=== PATIENT | male | born 1955 | race American Indian/Alaskan Native ===

== ENCOUNTER → 2017-02-20 | Outpatient (CLI) | payer OTHER | END | disposition home or self-care (01) | LOC: MW.RT 21:08 | PROVIDERS: ATTEND Family Medicine | DX: R04.2 Hemoptysis (principal) | CPT/HCPCS: 95810 ==

== ENCOUNTER 2020-05-20 20:33 | Observation (INO) | payer OTHER ==
[2020-05-20] MEDS ORDERED: Aspirin 81 MG Tab.Chew PO ONE (21:07)
[2020-05-20] MEDS ORDERED: Furosemide 40 MG/4 ML VIAL IVPUSH ONE (21:11)
--- NOTE | 2020-05-20 21:14 | EDM.PDOC ---
ED HPI GENERAL MEDICAL PROBLEM - General Chief Complaint: Chest Pain Stated Complaint: chest pain short of breath Time Seen by Provider: 05/20/20 20:40 Source of Information: Reports: Patient History Limitations: Reports: No Limitations - History of Present Illness INITIAL COMMENTS - FREE TEXT/NARRATIVE: 64M PMHx unspecified open heart surgery roughly 50 years ago, HTN, HLD presents for chest pain x1-week associated with b/l ankle swelling and SOB. Patient has not seen a nurse esthetician or had a cardiac workup in many years. Notes pain is constant. Notes ankle swelling only relieved by laying down at night. Notes SOB "for many years" and h/o low O2 sat. Onset: Other (7 days) Location: Reports: Chest Quality: Reports: Sharp - Related Data Allergies Allergy/AdvReac Type Severity Reaction Status Date / Time No Known Allergies Allergy Verified 05/21/20 01:39 Home Meds: Home Meds Ezetimibe/Simvastatin [Vytorin 10-40 mg Tablet] 1 each PO DAILY 09/30/15 [History] Glimepiride 4 mg PO BIDMEALS 09/30/15 [History] Insulin Glarg,Human.Rec.Analog [LantUS] 45 unit SUBCUT DAILY 09/30/15 [History] Lisinopril [Prinivil] 20 mg PO DAILY 09/30/15 [History] Omeprazole [Prilosec] 20 mg PO DAILY 09/30/15 [History] hydroCHLOROthiazide [Hydrochlorothiazide] 25 mg PO DAILY 09/30/15 [History] Past Medical History Cardiovascular History: Reports: Heart Valve Replacement, Stents, Other (See Be low) Other Cardiovascular History: artificial pig valve Endocrine/Metabolic History: Reports: Diabetes, Type I - Past Surgical History Cardiovascular Surgical History: Reports: Valve Replacement Social & Family History - Family History Family Medical History: Noncontributory ED ROS GENERAL - Review of Systems Review Of Systems: Comprehensive ROS is negative, except as noted in HPI. ED EXAM, GENERAL - Physical Exam Exam: See Below Exam Limited By: No Limitations General Appearance: Alert, WD/WN, No Apparent Distress Head: Atraumatic Neck: Normal Inspection Respiratory/Chest: No Respiratory Distress, Lungs Clear, Normal Breath Sounds, No Accessory Muscle Use Cardiovascular: Normal Peripheral Pulses, Tachycardia, Other (b/l symmetric pitting LE edema) GI/Abdominal: Soft, Non-Tender, No Distention, Other (obese) Neurological: Alert, Oriented Psychiatric: Normal Affect, Normal Mood Skin Exam: Warm, Dry EKG INTERPRETATION EKG Date: 05/20/20 Time: 21:19 Rhythm: NSR Rate (Beats/Min): 115 ST-T: Normal (TWI inferior leads) Course - Vital Signs Last Recorded V/S: Last Vital Signs Temp 98.6 F 05/21/20 01:42 Pulse 91 05/21/20 01:42 Resp 18 05/21/20 01:15 BP 162/88 H 05/21/20 01:42 Pulse Ox 93 L 05/21/20 02:47 - Orders/Labs/Meds Orders: Medication Orders Acetaminophen (Tylenol) 650 mg PO Q6H PRN PRN Reason: Pain Albuterol/Ipratropium (Duoneb 3.0-0.5 Mg/3 Ml) 3 ml NEB Q4HRRT PRN PRN Reason: Shortness of Breath Aspirin (Aspirin) 81 mg PO DAILY TERESE Furosemide (Lasix) 40 mg IVPUSH BID TERESE Labetalol HCl (Normodyne) 20 mg IVPUSH Q4H PRN; Protocol PRN Reason: Hypertension Pravastatin Sodium (Pravachol) 20 mg PO BEDTIME TERESE Last Admin: 05/21/20 02:20 Dose: 20 mg Documented by: MO Labs: Laboratory Tests 05/20/20 05/20/20 05/20/20 Range/Units 21:15 21:15 21:15 WBC 10.36 (4.0-11.0) K/uL RBC 5.00 (4.50-5.90) M/uL Hgb 15.1 (13.0-17.0) g/dL Hct 45.0 (38.0-50.0) % MCV 90.0 (80.0-98.0) fL MCH 30.2 (27.0-32.0) pg MCHC 33.6 (31.0-37.0) g/dL RDW Std Deviation 43.3 (28.0-62.0) fl RDW Coeff of Saritha 13 (11.0-15.0) % Plt Count 184 (150-400) K/uL MPV 10.10 (7.40-12.00) fL Neut % (Auto) 52.4 (48.0-80.0) % Lymph % (Auto) 34.3 (16.0-40.0) % Clarke % (Auto) 10.2 (0.0-15.0) % Eos % (Auto) 2.9 (0.0-7.0) % Baso % (Auto) 0.2 (0.0-1.5) % Neut # (Auto) 5.4 (1.4-5.7) K/uL Lymph # (Auto) 3.6 H (0.6-2.4) K/uL Clarke # (Auto) 1.1 H (0.0-0.8) K/uL Eos # (Auto) 0.3 (0.0-0.7) K/uL Baso # (Auto) 0.0 (0.0-0.1) K/uL Nucleated RBC % 0.0 /100WBC Nucleated RBCs # 0 K/uL D-Dimer, Quantitative (0.0-0.50) mg/L FEU Sodium 134 L (136-148) mmol/L Potassium 3.7 (3.5-5.1) mmol/L Chloride 97 L (98-107) mmol/L Carbon Dioxide 23.9 (21.0-32.0) mmol/L BUN 15 (7.0-18.0) mg/dL Creatinine 1.0 (0.8-1.3) mg/dL Est Cr Clr Drug Dosing TNP Estimated GFR (MDRD) > 60.0 ml/min Glucose 195 H (74-106) mg/dL Calcium 8.8 (8.5-10.1) mg/dL Magnesium 1.1 L (1.8-2.4) mg/dL Total Bilirubin 0.4 (0.2-1.0) mg/dL AST 21 (15-37) IU/L ALT 22 (14-63) IU/L Alkaline Phosphatase 87 (46-116) U/L Troponin I < 0.050 (0.000-0.056) ng/mL B-Natriuretic Peptide 85 (<100) PG/ML Total Protein 8.2 (6.4-8.2) g/dL Albumin 3.6 (3.4-5.0) g/dL Globulin 4.6 H (2.6-4.0) g/dL Albumin/Globulin Ratio 0.8 L (0.9-1.6) Urine Color Urine Appearance Urine pH (5.0-8.0) Ur Specific [place] (1.001-1.035) Urine Protein (NEGATIVE) mg/dL Urine Glucose (UA) (NEGATIVE) mg/dL Urine Ketones (NEGATIVE) mg/dL Urine Occult Blood (NEGATIVE) Urine Nitrite (NEGATIVE) Urine Bilirubin (NEGATIVE) Urine Urobilinogen (<2.0) EU/dL Ur Leukocyte Esterase (NEGATIVE) Urine RBC (0-2/HPF) Urine WBC (0-5/HPF) Ur Epithelial Cells (NONE-FEW) Urine Bacteria (NEGATIVE) Urine Mucus (NONE-MOD) COVID-19 (JAMES) (NEGATIVE) 05/20/20 05/20/20 05/20/20 Range/Units 21:35 21:50 22:45 WBC (4.0-11.0) K/uL RBC (4.50-5.90) M/uL Hgb (13.0-17.0) g/dL Hct (38.0-50.0) % MCV (80.0-98.0) fL MCH (27.0-32.0) pg MCHC (31.0-37.0) g/dL RDW Std Deviation (28.0-62.0) fl RDW Coeff of Saritha (11.0-15.0) % Plt Count (150-400) K/uL MPV (7.40-12.00) fL Neut % (Auto) (48.0-80.0) % Lymph % (Auto) (16.0-40.0) % Clarke % (Auto) (0.0-15.0) % Eos % (Auto) (0.0-7.0) % Baso % (Auto) (0.0-1.5) % Neut # (Auto) (1.4-5.7) K/uL Lymph # (Auto) (0.6-2.4) K/uL Clarke # (Auto) (0.0-0.8) K/uL Eos # (Auto) (0.0-0.7) K/uL Baso # (Auto) (0.0-0.1) K/uL Nucleated RBC % /100WBC Nucleated RBCs # K/uL D-Dimer, Quantitative 0.55 H (0.0-0.50) mg/L FEU Sodium (136-148) mmol/L Potassium (3.5-5.1) mmol/L Chloride (98-107) mmol/L Carbon Dioxide (21.0-32.0) mmol/L BUN (7.0-18.0) mg/dL Creatinine (0.8-1.3) mg/dL Est Cr Clr Drug Dosing Estimated GFR (MDRD) ml/min Glucose (74-106) mg/dL Calcium (8.5-10.1) mg/dL Magnesium (1.8-2.4) mg/dL Total Bilirubin (0.2-1.0) mg/dL AST (15-37) IU/L ALT (14-63) IU/L Alkaline Phosphatase (46-116) U/L Troponin I (0.000-0.056) ng/mL B-Natriuretic Peptide (<100) PG/ML Total Protein (6.4-8.2) g/dL Albumin (3.4-5.0) g/dL Globulin (2.6-4.0) g/dL Albumin/Globulin Ratio (0.9-1.6) Urine Color YELLOW Urine Appearance HAZY Urine pH 5.5 (5.0-8.0) Ur Specific [place] 1.010 (1.001-1.035) Urine Protein 100 H (NEGATIVE) mg/dL Urine Glucose (UA) 250 H (NEGATIVE) mg/dL Urine Ketones NEGATIVE (NEGATIVE) mg/dL Urine Occult Blood MODERATE H (NEGATIVE) Urine Nitrite NEGATIVE (NEGATIVE) Urine Bilirubin NEGATIVE (NEGATIVE) Urine Urobilinogen 0.2 (<2.0) EU/dL Ur Leukocyte Esterase NEGATIVE (NEGATIVE) Urine RBC 2-4 (0-2/HPF) Urine WBC 1-3 (0-5/HPF) Ur Epithelial Cells FEW (NONE-FEW) Urine Bacteria RARE (NEGATIVE) Urine Mucus LIGHT (NONE-MOD) COVID-19 (JAMES) NEGATIVE (NEGATIVE) 05/20/20 Range/Units 23:34 WBC (4.0-11.0) K/uL RBC (4.50-5.90) M/uL Hgb (13.0-17.0) g/dL Hct (38.0-50.0) % MCV (80.0-98.0) fL MCH (27.0-32.0) pg MCHC (31.0-37.0) g/dL RDW Std Deviation (28.0-62.0) fl RDW Coeff of Saritha (11.0-15.0) % Plt Count (150-400) K/uL MPV (7.40-12.00) fL Neut % (Auto) (48.0-80.0) % Lymph % (Auto) (16.0-40.0) % Clarke % (Auto) (0.0-15.0) % Eos % (Auto) (0.0-7.0) % Baso % (Auto) (0.0-1.5) % Neut # (Auto) (1.4-5.7) K/uL Lymph # (Auto) (0.6-2.4) K/uL Clarke # (Auto) (0.0-0.8) K/uL Eos # (Auto) (0.0-0.7) K/uL Baso # (Auto) (0.0-0.1) K/uL Nucleated RBC % /100WBC Nucleated RBCs # K/uL D-Dimer, Quantitative (0.0-0.50) mg/L FEU Sodium (136-148) mmol/L Potassium (3.5-5.1) mmol/L Chloride (98-107) mmol/L Carbon Dioxide (21.0-32.0) mmol/L BUN (7.0-18.0) mg/dL Creatinine (0.8-1.3) mg/dL Est Cr Clr Drug Dosing Estimated GFR (MDRD) ml/min Glucose (74-106) mg/dL Calcium (8.5-10.1) mg/dL Magnesium (1.8-2.4) mg/dL Total Bilirubin (0.2-1.0) mg/dL AST (15-37) IU/L ALT (14-63) IU/L Alkaline Phosphatase (46-116) U/L Troponin I < 0.050 (0.000-0.056) ng/mL B-Natriuretic Peptide (<100) PG/ML Total Protein (6.4-8.2) g/dL Albumin (3.4-5.0) g/dL Globulin (2.6-4.0) g/dL Albumin/Globulin Ratio (0.9-1.6) Urine Color Urine Appearance Urine pH (5.0-8.0) Ur Specific [place] (1.001-1.035) Urine Protein (NEGATIVE) mg/dL Urine Glucose (UA) (NEGATIVE) mg/dL Urine Ketones (NEGATIVE) mg/dL Urine Occult Blood (NEGATIVE) Urine Nitrite (NEGATIVE) Urine Bilirubin (NEGATIVE) Urine Urobilinogen (<2.0) EU/dL Ur Leukocyte Esterase (NEGATIVE) Urine RBC (0-2/HPF) Urine WBC (0-5/HPF) Ur Epithelial Cells (NONE-FEW) Urine Bacteria (NEGATIVE) Urine Mucus (NONE-MOD) COVID-19 (JAMES) (NEGATIVE) Meds: Medications Generic Name Dose Route Start Last Admin Trade Name Yoon PRN Reason Stop Dose Admin Acetaminophen 650 mg 05/21/20 01:48 Tylenol PO Q6H PRN Pain Albuterol/Ipratropium 3 ml 05/21/20 01:56 Duoneb 3.0-0.5 Mg/3 Ml NEB Q4HRRT PRN Shortness of Breath Aspirin 81 mg 05/21/20 09:00 Aspirin PO DAILY TERESE Furosemide 40 mg 05/21/20 09:00 Lasix IVPUSH BID TERESE Labetalol HCl 20 mg 05/21/20 02:00 Normodyne IVPUSH Q4H PRN Hypertension Protocol Pravastatin Sodium 20 mg 05/21/20 01:45 05/21/20 02:20 Pravachol PO 20 mg BEDTIME TERESE Administration Discontinued Medications Generic Name Dose Route Start Last Admin Trade Name Yoon PRN Reason Stop Dose Admin Aspirin 324 mg 05/20/20 21:07 05/20/20 21:38 Aspirin PO 05/20/20 21:08 324 mg ONETIME ONE Administration Furosemide 40 mg 05/20/20 21:11 05/20/20 21:38 Lasix IVPUSH 05/20/20 21:12 40 mg NOW ONE Administration Magnesium Sulfate 2 gm/ Premix 50 mls @ 50 mls/hr 05/21/20 01:47 05/21/20 02:21 IV 05/21/20 02:46 50 mls/hr ONETIME ONE Administration Iopamidol 75 ml 05/20/20 23:08 05/20/20 23:10 Isovue-370 (76%) IVPUSH 05/20/20 23:09 75 ml ONETIME STA Administration Labetalol HCl 20 mg 05/20/20 21:17 05/20/20 21:35 Normodyne IVPUSH 05/20/20 21:18 20 mg ONETIME ONE Administration Protocol Labetalol HCl 20 mg 05/20/20 23:24 05/20/20 23:37 Normodyne IVPUSH 05/20/20 23:25 20 mg ONETIME ONE Administration Protocol - Re-Assessments/Exams Free Text/Narrative Re-Assessment/Exam: 05/20/20 21:19 Patient presents with evidence of volume overload, hypertension, tachycardia. Free Text/Narrative Re-Assessment/Exam: 05/20/20 23:25 CT PE negative. Initially good response to labetalol 20 (BP down 150/90) but rebound back to 190/110. Will give additional labetalol 20mg. Second troponin pending for admit vs transfer. Departure - Departure Time of Disposition: 00:18 Disposition: Admitted As Inpatient 68 Condition: Fair Clinical Impression: Chest pain Qualifiers: Chest pain type: other chest pain Qualified Code(s): R07.89 - Other chest pain; R07.8 - Other chest pain Sepsis Event Note (ED) - Evaluation Sepsis Screening Result: No Definite Risk - Focused Exam Vital Signs: Vital Signs Temp Pulse Resp BP Pulse Ox 05/20/20 23:49 94 24 H 175/91 H 94 L 05/20/20 23:44 93 18 175/90 H 94 L 05/20/20 23:09 95 18 193/111 H 94 L 05/20/20 21:39 93 18 153/85 H 95 05/20/20 20:58 97.6 F 108 H 20 215/116 H 93 L
[2020-05-20] MEDS ORDERED: Labetalol 100 MG/20 ML MDV IVPUSH ONE ×2 (21:17→23:24)
--- NOTE | 2020-05-20 21:37 | CR ---
Chest: Portable view of the chest was obtained. Comparison: Prior chest x-ray of 09/30/15. Heart is slightly enlarged. Prior sternotomy is noted. Lungs are clear with no acute parenchymal change. Bony structures are grossly intact. Impression: 1. Stable cardiomegaly with prior sternotomy. 2. Nothing acute is appreciated. Diagnostic code #2 This report was dictated in MDT
[2020-05-20 21:51] LABS: BLOOD UREA NITROGEN,BUN 15 mg/dL (7.0-18.0); CARBON DIOXIDE,CO2 23.9 mmol/L (21.0-32.0); CHLORIDE,CL 97 mmol/L (98-107); GLUCOSE RANDOM 195 mg/dL (74-106); POTASSIUM,K 3.7 mmol/L (3.5-5.1); SODIUM,NA 134 mmol/L (136-148)
[2020-05-20] MEDS ORDERED: Iopamidol 755 Mg/ML 100 ML Bottle IVPUSH STA ×2 (23:06→23:08)
--- NOTE | 2020-05-20 23:21 | CT ---
INDICATION: Shortness of breath and chest pain for a week TECHNIQUE: CT chest pulmonary PE protocol acquired with 75 cc Isovue 370 IV contrast. COMPARISON: October 12, 2015 FINDINGS: Cardiovascular structures: Normal vascular enhancement of the pulmonary arteries, no sign of pulmonary embolism. Status post median sternotomy. Heart size is normal. Coronary artery calcifications. No sign of aneurysm in the thoracic aorta. Mediastinum and bo: No mass or adenopathy. Lungs: Bilateral ground-glass opacities. Pleura and pericardium: No effusions. There are pericardial calcifications. Chest wall and axilla: No mass or adenopathy. Upper abdomen: Unremarkable. Bones: No significant findings. IMPRESSION: No pulmonary embolism. Bilateral ground-glass opacities concerning for infection, including COVID-19. Coronary artery disease. Pericardial calcifications. These can be seen with prior pericarditis. Please note that all CT scans at this facility use dose modulation, iterative reconstruction, and/or weight-based dosing when appropriate to reduce radiation dose to as low as reasonably achievable. Dictated by Mellissa Hough MD @ May 20 2020 11:10PM Signed by Dr. Mellissa Hough @ May 20 2020 11:20PM
[2020-05-21] MEDS ORDERED: Magnesium Sulfate/Water 2 GM in Premix Bag 1 BAG IV ONE (01:47)
[2020-05-21] MEDS ORDERED: Acetaminophen 325 MG Tab PO PRN (01:48)
[2020-05-21] MEDS ORDERED: Albuterol/Ipratropium 3.0-0.5 MG/3 ML Neb Soln NEB PRN (01:56)
[2020-05-21] MEDS ORDERED: Labetalol 100 MG/20 ML MDV IVPUSH PRN (02:00)
[2020-05-21] MEDS: Pravastatin 40 MG Tab PO SCH ×2 (02:20→20:48)
[2020-05-21] MEDS ORDERED: Insulin Glargine,Human Rec. Analog 100 Units/ML 3 ML Pen SUBCUT SCH ×2 (03:22→21:00)
[2020-05-21 06:42] LABS: BLOOD UREA NITROGEN,BUN 25 mg/dL (7.0-18.0); CARBON DIOXIDE,CO2 27.6 mmol/L (21.0-32.0); CHLORIDE,CL 98 mmol/L (98-107); GLUCOSE RANDOM 259 mg/dL (74-106); POTASSIUM,K 3.8 mmol/L (3.5-5.1); SODIUM,NA 135 mmol/L (136-148)
[2020-05-21 06:47] LABS: HEMOGLOBIN A1C 8.9 % (4.5-6.2)
--- NOTE | 2020-05-21 08:05 | PCM.HP.2 ---
<Arslan Lynch M - Last Filed: 05/21/20 12:07> H&P History of Present Illness - General Date of Service: 05/21/20 Admit Problem/Dx: Admission Diagnosis/Problem Admission Diagnosis/Problem Chest pain Source of Information: Patient History Limitations: Reports: No Limitations - History of Present Illness Initial Comments - Free Text/Narative: 64-year-old male presents complaining of left-sided chest pain. He has a PMH HTN, hyperlipidemia, heart valve replacement, diabetes mellitus type II and SONJA. Patient reports that he has been having left-sided, sharp, intermittent chest pain for the past 1 week. It will last for a few hours and resolve spo ntaneously. It is described as being burning in nature and is unrelated to activity. He has been have leg swelling for the past 1 year. He notices the leg swelling by the end of the day when his shoes start feeling tight. After lying down the leg swelling resolves. He was put on "water pills" by his PCP for it. He also reports shortness of breath on exertion for the past 1 month. He denies any recent weight gain or feeling short of breath when laying down. Denies any tobacco use or illicit drugs. Drinks 14 beers per week. Works in [employer] and has been subject to "fumes" for many years and never wore a mask. He has a sleep study done 2-3 years ago and diagnosed with SONJA but does not use CPAP machine because he cannot tolerate it. Denies any fevers, chills, blurry vision, sore throat, cough, nausea, vomiting, abdominal pain, diarrhea, blood in stool, blood in urine, numbness or tingling in extremities. In the ER, EKG was unremarkable, CXR showed cardiomegaly, CT angio showed no PE but did reveal b/l ground-glass opacities. UA was unremarkable. COVID19 test negative. BNP was normal. Troponin was negative. Patient was given aspirin 324 mg and IV labetalol x 2 for high blood pressures. Patient admitted for further evaluation and treatment. - Related Data Allergies/Adverse Reactions: Allergies Allergy/AdvReac Type Severity Reaction Status Date / Time No Known Allergies Allergy Verified 05/21/20 01:39 Home Medications: Home Meds Ezetimibe/Simvastatin [Vytorin 10-40 mg Tablet] 1 each PO DAILY 09/30/15 [History] Glimepiride 4 mg PO BIDMEALS 09/30/15 [History] Insulin Glarg,Human.Rec.Analog [Lantus] 45 unit SUBCUT DAILY 09/30/15 [History] Lisinopril [Prinivil] 20 mg PO DAILY 09/30/15 [History] Omeprazole [Prilosec] 20 mg PO DAILY 09/30/15 [History] hydroCHLOROthiazide [Hydrochlorothiazide] 25 mg PO DAILY 09/30/15 [History] Aspirin 81 mg PO DAILY 30 Days #30 tab.chew 05/21/20 [Rx] Furosemide 20 mg PO DAILY 30 Days #30 tablet 05/21/20 [Rx] Past Medical History HEENT History: Reports: None Cardiovascular History: Reports: Heart Valve Replacement, Stents, Other (See Below) Other Cardiovascular History: artificial pig valve Respiratory History: Reports: None, Sleep Apnea Gastrointestinal History: Reports: None Genitourinary History: Reports: None Musculoskeletal History: Reports: None Neurological History: Reports: None Psychiatric History: Reports: None Endocrine/Metabolic History: Reports: Diabetes, Type I Hematologic History: Reports: None Immunologic History: Reports: None Oncologic (Cancer) History: Reports: None Dermatologic History: Reports: None - Infectious Disease History Infectious Disease History: Reports: None - Past Surgical History Cardiovascular Surgical History: Reports: Valve Replacement Social & Family History - Family History Family Medical History: Noncontributory - Tobacco Use Smoking Status *Q: Never Smoker Second Hand Smoke Exposure: Yes - Caffeine Use Caffeine Use: Reports: Soda - Alcohol Use Days Per Week of Alcohol Use: 2 Number of Drinks Per Day: 10 Total Drinks Per Week: 20 Date of Last Drink: 05/21/20 Time of Last Drink: 18:00 - Recreational Drug Use Recreational Drug Use: No H&P Review of Systems - Review of Systems: Review Of Systems: Comprehensive ROS is negative, except as noted in HPI. Exam - Exam Exam: See Below - Vital Signs Vital Signs: Last Vital Signs Temp 36.4 C 05/21/20 04:35 Pulse 80 05/21/20 04:35 Resp 18 05/21/20 04:35 BP 142/70 H 05/21/20 04:35 Pulse Ox 96 05/21/20 04:35 Weight: 109.27 kg - Exam General: Alert, Oriented, Cooperative, Other (NAD) HEENT: Conjunctiva Clear, EOMI, Hearing Intact, Pupils Equal, Pupils Reactive Neck: Supple, Trachea Midline Lungs: Clear to Auscultation, Normal Respiratory Effort Cardiovascular: Regular Rate, Regular Rhythm GI/Abdominal Exam: Normal Bowel Sounds, Soft, Non-Tender, No Distention Extremities: Normal Inspection, Other (1+ pitting edema b/l) Peripheral Pulses: 2+: Radial (L), Radial (R) Skin: Warm, Dry, Intact Neurological: Cranial Nerves Intact, Strength Equal Bilateral, Normal Speech, Normal Tone Neuro Extensive - Mental Status: Alert, Oriented x3, Normal Mood/Affect Psychiatric: Alert, Normal Affect, Normal Mood - Patient Data Lab Results Last 24 hrs: Laboratory Results - last 24 hr 05/20/20 05/20/20 05/20/20 Range/Units 21:15 21:15 21:15 WBC 10.36 (4.0-11.0) K/uL RBC 5.00 (4.50-5.90) M/uL Hgb 15.1 (13.0-17.0) g/dL Hct 45.0 (38.0-50.0) % MCV 90.0 (80.0-98.0) fL MCH 30.2 (27.0-32.0) pg MCHC 33.6 (31.0-37.0) g/dL RDW Std Deviation 43.3 (28.0-62.0) fl RDW Coeff of Saritha 13 (11.0-15.0) % Plt Count 184 (150-400) K/uL MPV 10.10 (7.40-12.00) fL Neut % (Auto) 52.4 (48.0-80.0) % Lymph % (Auto) 34.3 (16.0-40.0) % Crisp % (Auto) 10.2 (0.0-15.0) % Eos % (Auto) 2.9 (0.0-7.0) % Baso % (Auto) 0.2 (0.0-1.5) % Neut # (Auto) 5.4 (1.4-5.7) K/uL Lymph # (Auto) 3.6 H (0.6-2.4) K/uL Crisp # (Auto) 1.1 H (0.0-0.8) K/uL Eos # (Auto) 0.3 (0.0-0.7) K/uL Baso # (Auto) 0.0 (0.0-0.1) K/uL Nucleated RBC % 0.0 /100WBC Nucleated RBCs # 0 K/uL D-Dimer, Quantitative (0.0-0.50) mg/L FEU Sodium 134 L (136-148) mmol/L Potassium 3.7 (3.5-5.1) mmol/L Chloride 97 L (98-107) mmol/L Carbon Dioxide 23.9 (21.0-32.0) mmol/L BUN 15 (7.0-18.0) mg/dL Creatinine 1.0 (0.8-1.3) mg/dL Est Cr Clr Drug Dosing TNP Estimated GFR (MDRD) > 60.0 ml/min Glucose 195 H (74-106) mg/dL POC Glucose (60-110) mg/dL Hemoglobin A1c (4.5-6.2) % Calcium 8.8 (8.5-10.1) mg/dL Phosphorus (2.6-4.7) mg/dL Magnesium 1.1 L (1.8-2.4) mg/dL Total Bilirubin 0.4 (0.2-1.0) mg/dL AST 21 (15-37) IU/L ALT 22 (14-63) IU/L Alkaline Phosphatase 87 (46-116) U/L Troponin I < 0.050 (0.000-0.056) ng/mL B-Natriuretic Peptide 85 (<100) PG/ML Total Protein 8.2 (6.4-8.2) g/dL Albumin 3.6 (3.4-5.0) g/dL Globulin 4.6 H (2.6-4.0) g/dL Albumin/Globulin Ratio 0.8 L (0.9-1.6) Triglycerides (0-200) mg/dL Cholesterol (50-200) mg/dL LDL Cholesterol, Calc (60-180) mg/dL VLDL Cholesterol (5-55) mg/dL HDL Cholesterol (40-60) mg/dL Cholesterol/HDL Ratio (3.3-6.0) TSH 3rd Generation (0.36-3.74) uIU/mL Urine Color Urine Appearance Urine pH (5.0-8.0) Ur Specific [place] (1.001-1.035) Urine Protein (NEGATIVE) mg/dL Urine Glucose (UA) (NEGATIVE) mg/dL Urine Ketones (NEGATIVE) mg/dL Urine Occult Blood (NEGATIVE) Urine Nitrite (NEGATIVE) Urine Bilirubin (NEGATIVE) Urine Urobilinogen (<2.0) EU/dL Ur Leukocyte Esterase (NEGATIVE) Urine RBC (0-2/HPF) Urine WBC (0-5/HPF) Ur Epithelial Cells (NONE-FEW) Urine Bacteria (NEGATIVE) Urine Mucus (NONE-MOD) COVID-19 (JAMES) (NEGATIVE) 05/20/20 05/20/20 05/20/20 Range/Units 21:35 21:50 22:45 WBC (4.0-11.0) K/uL RBC (4.50-5.90) M/uL Hgb (13.0-17.0) g/dL Hct (38.0-50.0) % MCV (80.0-98.0) fL MCH (27.0-32.0) pg MCHC (31.0-37.0) g/dL RDW Std Deviation (28.0-62.0) fl RDW Coeff of Saritha (11.0-15.0) % Plt Count (150-400) K/uL MPV (7.40-12.00) fL Neut % (Auto) (48.0-80.0) % Lymph % (Auto) (16.0-40.0) % Crisp % (Auto) (0.0-15.0) % Eos % (Auto) (0.0-7.0) % Baso % (Auto) (0.0-1.5) % Neut # (Auto) (1.4-5.7) K/uL Lymph # (Auto) (0.6-2.4) K/uL Crisp # (Auto) (0.0-0.8) K/uL Eos # (Auto) (0.0-0.7) K/uL Baso # (Auto) (0.0-0.1) K/uL Nucleated RBC % /100WBC Nucleated RBCs # K/uL D-Dimer, Quantitative 0.55 H (0.0-0.50) mg/L FEU Sodium (136-148) mmol/L Potassium (3.5-5.1) mmol/L Chloride (98-107) mmol/L Carbon Dioxide (21.0-32.0) mmol/L BUN (7.0-18.0) mg/dL Creatinine (0.8-1.3) mg/dL Est Cr Clr Drug Dosing Estimated GFR (MDRD) ml/min Glucose (74-106) mg/dL POC Glucose (60-110) mg/dL Hemoglobin A1c (4.5-6.2) % Calcium (8.5-10.1) mg/dL Phosphorus (2.6-4.7) mg/dL Magnesium (1.8-2.4) mg/dL Total Bilirubin (0.2-1.0) mg/dL AST (15-37) IU/L ALT (14-63) IU/L Alkaline Phosphatase (46-116) U/L Troponin I (0.000-0.056) ng/mL B-Natriuretic Peptide (<100) PG/ML Total Protein (6.4-8.2) g/dL Albumin (3.4-5.0) g/dL Globulin (2.6-4.0) g/dL Albumin/Globulin Ratio (0.9-1.6) Triglycerides (0-200) mg/dL Cholesterol (50-200) mg/dL LDL Cholesterol, Calc (60-180) mg/dL VLDL Cholesterol (5-55) mg/dL HDL Cholesterol (40-60) mg/dL Cholesterol/HDL Ratio (3.3-6.0) TSH 3rd Generation (0.36-3.74) uIU/mL Urine Color YELLOW Urine Appearance HAZY Urine pH 5.5 (5.0-8.0) Ur Specific [place] 1.010 (1.001-1.035) Urine Protein 100 H (NEGATIVE) mg/dL Urine Glucose (UA) 250 H (NEGATIVE) mg/dL Urine Ketones NEGATIVE (NEGATIVE) mg/dL Urine Occult Blood MODERATE H (NEGATIVE) Urine Nitrite NEGATIVE (NEGATIVE) Urine Bilirubin NEGATIVE (NEGATIVE) Urine Urobilinogen 0.2 (<2.0) EU/dL Ur Leukocyte Esterase NEGATIVE (NEGATIVE) Urine RBC 2-4 (0-2/HPF) Urine WBC 1-3 (0-5/HPF) Ur Epithelial Cells FEW (NONE-FEW) Urine Bacteria RARE (NEGATIVE) Urine Mucus LIGHT (NONE-MOD) COVID-19 (JAMES) NEGATIVE (NEGATIVE) 05/20/20 05/21/20 05/21/20 Range/Units 23:34 02:36 03:38 WBC (4.0-11.0) K/uL RBC (4.50-5.90) M/uL Hgb (13.0-17.0) g/dL Hct (38.0-50.0) % MCV (80.0-98.0) fL MCH (27.0-32.0) pg MCHC (31.0-37.0) g/dL RDW Std Deviation (28.0-62.0) fl RDW Coeff of Saritha (11.0-15.0) % Plt Count (150-400) K/uL MPV (7.40-12.00) fL Neut % (Auto) (48.0-80.0) % Lymph % (Auto) (16.0-40.0) % Crisp % (Auto) (0.0-15.0) % Eos % (Auto) (0.0-7.0) % Baso % (Auto) (0.0-1.5) % Neut # (Auto) (1.4-5.7) K/uL Lymph # (Auto) (0.6-2.4) K/uL Crisp # (Auto) (0.0-0.8) K/uL Eos # (Auto) (0.0-0.7) K/uL Baso # (Auto) (0.0-0.1) K/uL Nucleated RBC % /100WBC Nucleated RBCs # K/uL D-Dimer, Quantitative (0.0-0.50) mg/L FEU Sodium (136-148) mmol/L Potassium (3.5-5.1) mmol/L Chloride (98-107) mmol/L Carbon Dioxide (21.0-32.0) mmol/L BUN (7.0-18.0) mg/dL Creatinine (0.8-1.3) mg/dL Est Cr Clr Drug Dosing Estimated GFR (MDRD) ml/min Glucose (74-106) mg/dL POC Glucose 245 H (60-110) mg/dL Hemoglobin A1c (4.5-6.2) % Calcium (8.5-10.1) mg/dL Phosphorus (2.6-4.7) mg/dL Magnesium (1.8-2.4) mg/dL Total Bilirubin (0.2-1.0) mg/dL AST (15-37) IU/L ALT (14-63) IU/L Alkaline Phosphatase (46-116) U/L Troponin I < 0.050 < 0.050 (0.000-0.056) ng/mL B-Natriuretic Peptide (<100) PG/ML Total Protein (6.4-8.2) g/dL Albumin (3.4-5.0) g/dL Globulin (2.6-4.0) g/dL Albumin/Globulin Ratio (0.9-1.6) Triglycerides (0-200) mg/dL Cholesterol (50-200) mg/dL LDL Cholesterol, Calc (60-180) mg/dL VLDL Cholesterol (5-55) mg/dL HDL Cholesterol (40-60) mg/dL Cholesterol/HDL Ratio (3.3-6.0) TSH 3rd Generation (0.36-3.74) uIU/mL Urine Color Urine Appearance Urine pH (5.0-8.0) Ur Specific [place] (1.001-1.035) Urine Protein (NEGATIVE) mg/dL Urine Glucose (UA) (NEGATIVE) mg/dL Urine Ketones (NEGATIVE) mg/dL Urine Occult Blood (NEGATIVE) Urine Nitrite (NEGATIVE) Urine Bilirubin (NEGATIVE) Urine Urobilinogen (<2.0) EU/dL Ur Leukocyte Esterase (NEGATIVE) Urine RBC (0-2/HPF) Urine WBC (0-5/HPF) Ur Epithelial Cells (NONE-FEW) Urine Bacteria (NEGATIVE) Urine Mucus (NONE-MOD) COVID-19 (JAMES) (NEGATIVE) 05/21/20 05/21/20 05/21/20 Range/Units 05:47 05:47 05:47 WBC 10.52 (4.0-11.0) K/uL RBC 4.61 (4.50-5.90) M/uL Hgb 13.9 (13.0-17.0) g/dL Hct 41.3 (38.0-50.0) % MCV 89.6 (80.0-98.0) fL MCH 30.2 (27.0-32.0) pg MCHC 33.7 (31.0-37.0) g/dL RDW Std Deviation 43.9 (28.0-62.0) fl RDW Coeff of Saritha 13 (11.0-15.0) % Plt Count 190 (150-400) K/uL MPV 10.20 (7.40-12.00) fL Neut % (Auto) 56.8 (48.0-80.0) % Lymph % (Auto) 28.0 (16.0-40.0) % Crisp % (Auto) 11.5 (0.0-15.0) % Eos % (Auto) 3.5 (0.0-7.0) % Baso % (Auto) 0.2 (0.0-1.5) % Neut # (Auto) 6.0 H (1.4-5.7) K/uL Lymph # (Auto) 3.0 H (0.6-2.4) K/uL Crisp # (Auto) 1.2 H (0.0-0.8) K/uL Eos # (Auto) 0.4 (0.0-0.7) K/uL Baso # (Auto) 0.0 (0.0-0.1) K/uL Nucleated RBC % 0.0 /100WBC Nucleated RBCs # 0 K/uL D-Dimer, Quantitative (0.0-0.50) mg/L FEU Sodium 135 L (136-148) mmol/L Potassium 3.8 (3.5-5.1) mmol/L Chloride 98 (98-107) mmol/L Carbon Dioxide 27.6 (21.0-32.0) mmol/L BUN 25 H (7.0-18.0) mg/dL Creatinine 1.0 (0.8-1.3) mg/dL Est Cr Clr Drug Dosing 76.59 Estimated GFR (MDRD) > 60.0 ml/min Glucose 259 H (74-106) mg/dL POC Glucose (60-110) mg/dL Hemoglobin A1c 8.9 H (4.5-6.2) % Calcium 8.6 (8.5-10.1) mg/dL Phosphorus 4.6 (2.6-4.7) mg/dL Magnesium 1.8 (1.8-2.4) mg/dL Total Bilirubin (0.2-1.0) mg/dL AST (15-37) IU/L ALT (14-63) IU/L Alkaline Phosphatase (46-116) U/L Troponin I (0.000-0.056) ng/mL B-Natriuretic Peptide (<100) PG/ML Total Protein (6.4-8.2) g/dL Albumin (3.4-5.0) g/dL Globulin (2.6-4.0) g/dL Albumin/Globulin Ratio (0.9-1.6) Triglycerides 83 (0-200) mg/dL Cholesterol 114 (50-200) mg/dL LDL Cholesterol, Calc 57 L (60-180) mg/dL VLDL Cholesterol 16 (5-55) mg/dL HDL Cholesterol 40 (40-60) mg/dL Cholesterol/HDL Ratio 2.9 L (3.3-6.0) TSH 3rd Generation 3.49 (0.36-3.74) uIU/mL Urine Color Urine Appearance Urine pH (5.0-8.0) Ur Specific [place] (1.001-1.035) Urine Protein (NEGATIVE) mg/dL Urine Glucose (UA) (NEGATIVE) mg/dL Urine Ketones (NEGATIVE) mg/dL Urine Occult Blood (NEGATIVE) Urine Nitrite (NEGATIVE) Urine Bilirubin (NEGATIVE) Urine Urobilinogen (<2.0) EU/dL Ur Leukocyte Esterase (NEGATIVE) Urine RBC (0-2/HPF) Urine WBC (0-5/HPF) Ur Epithelial Cells (NONE-FEW) Urine Bacteria (NEGATIVE) Urine Mucus (NONE-MOD) COVID-19 (JAMES) (NEGATIVE) 05/21/20 Range/Units 06:38 WBC (4.0-11.0) K/uL RBC (4.50-5.90) M/uL Hgb (13.0-17.0) g/dL Hct (38.0-50.0) % MCV (80.0-98.0) fL MCH (27.0-32.0) pg MCHC (31.0-37.0) g/dL RDW Std Deviation (28.0-62.0) fl RDW Coeff of Saritha (11.0-15.0) % Plt Count (150-400) K/uL MPV (7.40-12.00) fL Neut % (Auto) (48.0-80.0) % Lymph % (Auto) (16.0-40.0) % Crisp % (Auto) (0.0-15.0) % Eos % (Auto) (0.0-7.0) % Baso % (Auto) (0.0-1.5) % Neut # (Auto) (1.4-5.7) K/uL Lymph # (Auto) (0.6-2.4) K/uL Crisp # (Auto) (0.0-0.8) K/uL Eos # (Auto) (0.0-0.7) K/uL Baso # (Auto) (0.0-0.1) K/uL Nucleated RBC % /100WBC Nucleated RBCs # K/uL D-Dimer, Quantitative (0.0-0.50) mg/L FEU Sodium (136-148) mmol/L Potassium (3.5-5.1) mmol/L Chloride (98-107) mmol/L Carbon Dioxide (21.0-32.0) mmol/L BUN (7.0-18.0) mg/dL Creatinine (0.8-1.3) mg/dL Est Cr Clr Drug Dosing Estimated GFR (MDRD) ml/min Glucose (74-106) mg/dL POC Glucose 213 H (60-110) mg/dL Hemoglobin A1c (4.5-6.2) % Calcium (8.5-10.1) mg/dL Phosphorus (2.6-4.7) mg/dL Magnesium (1.8-2.4) mg/dL Total Bilirubin (0.2-1.0) mg/dL AST (15-37) IU/L ALT (14-63) IU/L Alkaline Phosphatase (46-116) U/L Troponin I (0.000-0.056) ng/mL B-Natriuretic Peptide (<100) PG/ML Total Protein (6.4-8.2) g/dL Albumin (3.4-5.0) g/dL Globulin (2.6-4.0) g/dL Albumin/Globulin Ratio (0.9-1.6) Triglycerides (0-200) mg/dL Cholesterol (50-200) mg/dL LDL Cholesterol, Calc (60-180) mg/dL VLDL Cholesterol (5-55) mg/dL HDL Cholesterol (40-60) mg/dL Cholesterol/HDL Ratio (3.3-6.0) TSH 3rd Generation (0.36-3.74) uIU/mL Urine Color Urine Appearance Urine pH (5.0-8.0) Ur Specific [place] (1.001-1.035) Urine Protein (NEGATIVE) mg/dL Urine Glucose (UA) (NEGATIVE) mg/dL Urine Ketones (NEGATIVE) mg/dL Urine Occult Blood (NEGATIVE) Urine Nitrite (NEGATIVE) Urine Bilirubin (NEGATIVE) Urine Urobilinogen (<2.0) EU/dL Ur Leukocyte Esterase (NEGATIVE) Urine RBC (0-2/HPF) Urine WBC (0-5/HPF) Ur Epithelial Cells (NONE-FEW) Urine Bacteria (NEGATIVE) Urine Mucus (NONE-MOD) COVID-19 (JAMES) (NEGATIVE) Result Diagrams: 05/21/20 05:47 05/21/20 05:47 Sepsis Event Note - Evaluation Sepsis Screening Result: No Definite Risk - Focused Exam Vital Signs: Vital Signs Temp Pulse Resp BP Pulse Ox Pulse Ox 05/21/20 04:35 36.4 C 80 18 142/70 H 96 05/21/20 02:47 94 L 93 L 05/21/20 02:14 93 L 05/21/20 01:42 37.0 C 91 162/88 H 93 L 05/21/20 01:15 36.7 C 95 18 182/80 H 93 L 05/21/20 00:37 91 22 H 146/94 H 93 L 05/20/20 23:49 94 24 H 175/91 H 94 L 05/20/20 23:44 93 18 175/90 H 94 L 05/20/20 23:09 95 18 193/111 H 94 L 05/20/20 21:39 93 18 153/85 H 95 05/20/20 20:58 36.4 C 108 H 20 215/116 H 93 L Date Exam was Performed: 05/21/20 Time Exam was Performed: 12:07 Problem List Initiated/Reviewed/Updated: Yes Orders Last 24hrs: Active Orders 24 hr Category Date Time Status Admission Status [Patient Status] [ADT] Stat ADT 05/21/20 00:19 Active Ambulate [RC] ASDIRECTED Care 05/21/20 01:53 Active Antiembolic Devices [RC] PER UNIT ROUTINE Care 05/21/20 01:53 Active Blood Glucose Check, Bedside [RC] TIDAC Care 05/21/20 07:55 Active Daily Weight [Height and Weight] [RC] DAILY Care 05/21/20 01:46 Active Intake and Output Strict [RC] Q12H Care 05/21/20 01:47 Active Oxygen Therapy [RC] ASDIRECTED Care 05/21/20 01:54 Active Pulse Oximetry [RC] ASDIRECTED Care 05/21/20 01:53 Active RT Aerosol Therapy [RC] ASDIRECTED Care 05/21/20 01:56 Active Telemetry Monitoring [Cardiac Monitoring] [RC] . Care 05/21/20 01:45 Active DIRECTED Vital Signs [RC] Q4H Care 05/21/20 01:54 Active Cardiac [Heart Healthy Diet] [DIET] Diet 05/21/20 Breakfast Active Fluid Restriction [DIET] Diet 05/21/20 Breakfast Active Echo Comp wo Cont [] Routine Exams 05/21/20 01:55 Ordered Acetaminophen [Tylenol] Med 05/21/20 01:48 Active 650 mg PO Q6H PRN Albuterol/Ipratropium [DuoNeb 3.0-0.5 MG/3 ML] Med 05/21/20 01:56 Active 3 ml NEB Q4HRRT PRN Aspirin Med 05/21/20 09:00 Active 81 mg PO DAILY Furosemide [Lasix] Med 05/21/20 09:00 Active 40 mg IVPUSH BID Insulin Aspart [NovoLOG] Med 05/21/20 07:30 Active See Protocol SUBCUT TIDAC Insulin Glarg,Human.Rec.Analog [LantUS Solostar] Med 05/21/20 03:22 Active 20 units SUBCUT BEDTIME Labetalol [Normodyne] Med 05/21/20 02:00 Active 20 mg IVPUSH Q4H PRN Omeprazole Med 05/21/20 09:00 Active 20 mg PO DAILY Pravastatin [Pravachol] Med 05/21/20 01:45 Active 20 mg PO BEDTIME hydroCHLOROthiazide Med 05/21/20 09:00 Active 25 mg PO DAILY lisinopriL [Prinivil] Med 05/21/20 09:00 Active 20 mg PO DAILY SCD [Sequential Compression Device] [OM.PC] Routine Oth 05/21/20 01:53 Ordered Medication Orders Acetaminophen (Tylenol) 650 mg PO Q6H PRN PRN Reason: Pain Albuterol/Ipratropium (Duoneb 3.0-0.5 Mg/3 Ml) 3 ml NEB Q4HRRT PRN PRN Reason: Shortness of Breath Aspirin (Aspirin) 81 mg PO DAILY TERESE Furosemide (Lasix) 40 mg IVPUSH BID TERESE Hydrochlorothiazide (Hydrochlorothiazide) 25 mg PO DAILY TERESE Insulin Aspart (Novolog) 0 unit SUBCUT TIDAC TERESE; Protocol Insulin Glargine (Lantus Solostar) 20 units SUBCUT BEDTIME [facility] Last Admin: 05/21/20 03:39 Dose: 20 units Documented by: MO Labetalol HCl (Normodyne) 20 mg IVPUSH Q4H PRN; Protocol PRN Reason: Hypertension Lisinopril (Prinivil) 20 mg PO DAILY TERESE Omeprazole (Omeprazole) 20 mg PO DAILY TERESE Pravastatin Sodium (Pravachol) 20 mg PO BEDTIME [facility] Last Admin: 05/21/20 02:20 Dose: 20 mg Documented by: MO Assessment/Plan Comment:: Assessment and Plan: 1. Chest pain, ACS rule out: - Admit to med/surg. Patient on telemetry. EKG on admission unremarkable. Troponins trended and negative x3. Patient reports no chest pain at bedside this morning. - CT angio negative for PE but did show b/l ground-glass opacities. COVID19 test negative. CXR showed cardiomegaly. 2. CHF: - Will order ECHO. Start IV lasix 40 mg BID, fluid restriction < 2L, low salt diet < 2 g, strict I's and O's and daily weights. Will require outpatient cardiology follow-up. 3. Diabetes mellitus type 2: - Resume home dose of long-acting insulin. ADA diet and SSI. Will consult parent educator. 4. Past medical history of HTN, SONJA and heart valve replacement: - Continue home medications. 5. DVT prophylaxis: SCD's. <Susan Garrido - Last Filed: 05/21/20 22:49> H&P History of Present Illness - General Admit Problem/Dx: Admission Diagnosis/Problem Admission Diagnosis/Problem Chest pain - History of Present Illness Initial Comments - Free Text/Narative: I performed a history and physical exam of the patient and discussed management with resident. I have reviewed the residents note and agree with documented findings and plan unless otherwise specified in my note. Exam - Vital Signs Vital Signs: Last Vital Signs Temp 36.1 C 05/21/20 20:58 Pulse 83 05/21/20 20:58 Resp 16 05/21/20 20:58 BP 170/80 H 05/21/20 20:58 Pulse Ox 91 L 05/21/20 20:58 - Patient Data Lab Results Last 24 hrs: Laboratory Results - last 24 hr 05/20/20 05/20/20 05/21/20 Range/Units 22:45 23:34 02:36 WBC (4.0-11.0) K/uL RBC (4.50-5.90) M/uL Hgb (13.0-17.0) g/dL Hct (38.0-50.0) % MCV (80.0-98.0) fL MCH (27.0-32.0) pg MCHC (31.0-37.0) g/dL RDW Std Deviation (28.0-62.0) fl RDW Coeff of Saritha (11.0-15.0) % Plt Count (150-400) K/uL MPV (7.40-12.00) fL Neut % (Auto) (48.0-80.0) % Lymph % (Auto) (16.0-40.0) % Crisp % (Auto) (0.0-15.0) % Eos % (Auto) (0.0-7.0) % Baso % (Auto) (0.0-1.5) % Neut # (Auto) (1.4-5.7) K/uL Lymph # (Auto) (0.6-2.4) K/uL Crisp # (Auto) (0.0-0.8) K/uL Eos # (Auto) (0.0-0.7) K/uL Baso # (Auto) (0.0-0.1) K/uL Nucleated RBC % /100WBC Nucleated RBCs # K/uL Sodium (136-148) mmol/L Potassium (3.5-5.1) mmol/L Chloride (98-107) mmol/L Carbon Dioxide (21.0-32.0) mmol/L BUN (7.0-18.0) mg/dL Creatinine (0.8-1.3) mg/dL Est Cr Clr Drug Dosing mL/min Estimated GFR (MDRD) ml/min Glucose (74-106) mg/dL POC Glucose (60-110) mg/dL Hemoglobin A1c (4.5-6.2) % Calcium (8.5-10.1) mg/dL Phosphorus (2.6-4.7) mg/dL Magnesium (1.8-2.4) mg/dL Troponin I < 0.050 < 0.050 (0.000-0.056) ng/mL Triglycerides (0-200) mg/dL Cholesterol (50-200) mg/dL LDL Cholesterol, Calc (60-180) mg/dL VLDL Cholesterol (5-55) mg/dL HDL Cholesterol (40-60) mg/dL Cholesterol/HDL Ratio (3.3-6.0) TSH 3rd Generation (0.36-3.74) uIU/mL COVID-19 (JAMES) NEGATIVE (NEGATIVE) 05/21/20 05/21/20 05/21/20 Range/Units 03:38 05:47 05:47 WBC 10.52 (4.0-11.0) K/uL RBC 4.61 (4.50-5.90) M/uL Hgb 13.9 (13.0-17.0) g/dL Hct 41.3 (38.0-50.0) % MCV 89.6 (80.0-98.0) fL MCH 30.2 (27.0-32.0) pg MCHC 33.7 (31.0-37.0) g/dL RDW Std Deviation 43.9 (28.0-62.0) fl RDW Coeff of Saritha 13 (11.0-15.0) % Plt Count 190 (150-400) K/uL MPV 10.20 (7.40-12.00) fL Neut % (Auto) 56.8 (48.0-80.0) % Lymph % (Auto) 28.0 (16.0-40.0) % Crisp % (Auto) 11.5 (0.0-15.0) % Eos % (Auto) 3.5 (0.0-7.0) % Baso % (Auto) 0.2 (0.0-1.5) % Neut # (Auto) 6.0 H (1.4-5.7) K/uL Lymph # (Auto) 3.0 H (0.6-2.4) K/uL Crisp # (Auto) 1.2 H (0.0-0.8) K/uL Eos # (Auto) 0.4 (0.0-0.7) K/uL Baso # (Auto) 0.0 (0.0-0.1) K/uL Nucleated RBC % 0.0 /100WBC Nucleated RBCs # 0 K/uL Sodium 135 L (136-148) mmol/L Potassium 3.8 (3.5-5.1) mmol/L Chloride 98 (98-107) mmol/L Carbon Dioxide 27.6 (21.0-32.0) mmol/L BUN 25 H (7.0-18.0) mg/dL Creatinine 1.0 (0.8-1.3) mg/dL Est Cr Clr Drug Dosing 76.59 mL/min Estimated GFR (MDRD) > 60.0 ml/min Glucose 259 H (74-106) mg/dL POC Glucose 245 H (60-110) mg/dL Hemoglobin A1c (4.5-6.2) % Calcium 8.6 (8.5-10.1) mg/dL Phosphorus 4.6 (2.6-4.7) mg/dL Magnesium 1.8 (1.8-2.4) mg/dL Troponin I (0.000-0.056) ng/mL Triglycerides 83 (0-200) mg/dL Cholesterol 114 (50-200) mg/dL LDL Cholesterol, Calc 57 L (60-180) mg/dL VLDL Cholesterol 16 (5-55) mg/dL HDL Cholesterol 40 (40-60) mg/dL Cholesterol/HDL Ratio 2.9 L (3.3-6.0) TSH 3rd Generation 3.49 (0.36-3.74) uIU/mL COVID-19 (JAMES) (NEGATIVE) 05/21/20 05/21/20 05/21/20 Range/Units 05:47 06:38 11:52 WBC (4.0-11.0) K/uL RBC (4.50-5.90) M/uL Hgb (13.0-17.0) g/dL Hct (38.0-50.0) % MCV (80.0-98.0) fL MCH (27.0-32.0) pg MCHC (31.0-37.0) g/dL RDW Std Deviation (28.0-62.0) fl RDW Coeff of Saritha (11.0-15.0) % Plt Count (150-400) K/uL MPV (7.40-12.00) fL Neut % (Auto) (48.0-80.0) % Lymph % (Auto) (16.0-40.0) % Crisp % (Auto) (0.0-15.0) % Eos % (Auto) (0.0-7.0) % Baso % (Auto) (0.0-1.5) % Neut # (Auto) (1.4-5.7) K/uL Lymph # (Auto) (0.6-2.4) K/uL Crisp # (Auto) (0.0-0.8) K/uL Eos # (Auto) (0.0-0.7) K/uL Baso # (Auto) (0.0-0.1) K/uL Nucleated RBC % /100WBC Nucleated RBCs # K/uL Sodium (136-148) mmol/L Potassium (3.5-5.1) mmol/L Chloride (98-107) mmol/L Carbon Dioxide (21.0-32.0) mmol/L BUN (7.0-18.0) mg/dL Creatinine (0.8-1.3) mg/dL Est Cr Clr Drug Dosing mL/min Estimated GFR (MDRD) ml/min Glucose (74-106) mg/dL POC Glucose 213 H 247 H (60-110) mg/dL Hemoglobin A1c 8.9 H (4.5-6.2) % Calcium (8.5-10.1) mg/dL Phosphorus (2.6-4.7) mg/dL Magnesium (1.8-2.4) mg/dL Troponin I (0.000-0.056) ng/mL Triglycerides (0-200) mg/dL Cholesterol (50-200) mg/dL LDL Cholesterol, Calc (60-180) mg/dL VLDL Cholesterol (5-55) mg/dL HDL Cholesterol (40-60) mg/dL Cholesterol/HDL Ratio (3.3-6.0) TSH 3rd Generation (0.36-3.74) uIU/mL COVID-19 (JAMES) (NEGATIVE) 05/21/20 05/21/20 Range/Units 16:45 20:47 WBC (4.0-11.0) K/uL RBC (4.50-5.90) M/uL Hgb (13.0-17.0) g/dL Hct (38.0-50.0) % MCV (80.0-98.0) fL MCH (27.0-32.0) pg MCHC (31.0-37.0) g/dL RDW Std Deviation (28.0-62.0) fl RDW Coeff of Saritha (11.0-15.0) % Plt Count (150-400) K/uL MPV (7.40-12.00) fL Neut % (Auto) (48.0-80.0) % Lymph % (Auto) (16.0-40.0) % Crisp % (Auto) (0.0-15.0) % Eos % (Auto) (0.0-7.0) % Baso % (Auto) (0.0-1.5) % Neut # (Auto) (1.4-5.7) K/uL Lymph # (Auto) (0.6-2.4) K/uL Crisp # (Auto) (0.0-0.8) K/uL Eos # (Auto) (0.0-0.7) K/uL Baso # (Auto) (0.0-0.1) K/uL Nucleated RBC % /100WBC Nucleated RBCs # K/uL Sodium (136-148) mmol/L Potassium (3.5-5.1) mmol/L Chloride (98-107) mmol/L Carbon Dioxide (21.0-32.0) mmol/L BUN (7.0-18.0) mg/dL Creatinine (0.8-1.3) mg/dL Est Cr Clr Drug Dosing mL/min Estimated GFR (MDRD) ml/min Glucose (74-106) mg/dL POC Glucose 272 H 273 H (60-110) mg/dL Hemoglobin A1c (4.5-6.2) % Calcium (8.5-10.1) mg/dL Phosphorus (2.6-4.7) mg/dL Magnesium (1.8-2.4) mg/dL Troponin I (0.000-0.056) ng/mL Triglycerides (0-200) mg/dL Cholesterol (50-200) mg/dL LDL Cholesterol, Calc (60-180) mg/dL VLDL Cholesterol (5-55) mg/dL HDL Cholesterol (40-60) mg/dL Cholesterol/HDL Ratio (3.3-6.0) TSH 3rd Generation (0.36-3.74) uIU/mL COVID-19 (JAMES) (NEGATIVE) Result Diagrams: 05/21/20 05:47 05/21/20 05:47 Sepsis Event Note - Focused Exam Vital Signs: Vital Signs Temp Pulse Resp BP BP Pulse Ox 05/21/20 20:58 36.1 C 83 16 170/80 H 91 L 05/21/20 16:00 36.4 C 79 16 161/82 H 95 05/21/20 12:00 78 16 146/84 H 05/21/20 11:01 168/87 H Date Exam was Performed: 05/21/20 Time Exam was Performed: 22:49 Orders Last 24hrs: Active Orders 24 hr Category Date Time Status Admission Status [Patient Status] [ADT] Stat ADT 05/21/20 00:19 Active Ambulate [RC] ASDIRECTED Care 05/21/20 01:53 Active Antiembolic Devices [RC] PER UNIT ROUTINE Care 05/21/20 01:53 Active Blood Glucose Check, Bedside [RC] TIDAC Care 05/21/20 07:55 Active Daily Weight [Height and Weight] [RC] DAILY Care 05/21/20 01:46 Active Intake and Output Strict [RC] Q12H Care 05/21/20 01:47 Active Oxygen Therapy [RC] ASDIRECTED Care 05/21/20 01:54 Active Pulse Oximetry [RC] ASDIRECTED Care 05/21/20 01:53 Active RT Aerosol Therapy [RC] ASDIRECTED Care 05/21/20 01:56 Active Ready for Discharge [RC] PER UNIT ROUTINE Care 05/21/20 17:36 Active Telemetry Monitoring [Cardiac Monitoring] [RC] Q8H Care 05/21/20 01:45 Active Vital Signs [RC] Q4H Care 05/21/20 01:54 Active Consult to Bean Snipper [Consult to Diabetic Nurse Cons 05/21/20 10:20 Active Specialist] [CONS] Routine Cardiac [Heart Healthy Diet] [DIET] Diet 05/21/20 Breakfast Active Fluid Restriction [DIET] Diet 05/21/20 Breakfast Active Echo Comp wo Cont [US] Routine Exams 05/21/20 01:55 Taken CBC WITH AUTO DIFF [HEME] AM Lab 05/22/20 05:11 Ordered COMPREHENSIVE METABOLIC PN,CMP [CHEM] AM Lab 05/22/20 05:11 Ordered Acetaminophen [Tylenol] Med 05/21/20 01:48 Active 650 mg PO Q6H PRN Albuterol/Ipratropium [DuoNeb 3.0-0.5 MG/3 ML] Med 05/21/20 01:56 Active 3 ml NEB Q4HRRT PRN Aspirin Med 05/21/20 09:00 Active 81 mg PO DAILY Enoxaparin [Lovenox] Med 05/21/20 13:45 Active 40 mg SUBCUT Q24H Ezetimibe [Zetia] Med 05/21/20 09:00 Active 10 mg PO DAILY Furosemide [Lasix] Med 05/21/20 17:00 Active 40 mg IVPUSH Q6H Insulin Aspart [NovoLOG] Med 05/21/20 07:30 Active See Protocol SUBCUT TIDAC Insulin Glarg,Human.Rec.Analog [LantUS Solostar] Med 05/21/20 21:00 Active 40 units SUBCUT BEDTIME Labetalol [Normodyne] Med 05/21/20 02:00 Active 20 mg IVPUSH Q4H PRN Omeprazole Med 05/21/20 09:00 Active 20 mg PO DAILY Pravastatin [Pravachol] Med 05/21/20 01:45 Active 20 mg PO BEDTIME Simvastatin [Zocor] Med 05/21/20 21:00 Active 40 mg PO BEDTIME hydroCHLOROthiazide Med 05/21/20 09:00 Active 25 mg PO DAILY lisinopriL [Prinivil] Med 05/21/20 09:00 Active 20 mg PO DAILY SCD [Sequential Compression Device] [OM.PC] Routine Oth 05/21/20 01:53 Ordered Code Status [Resuscitation Status] Routine Resus Stat 05/21/20 09:38 Ordered Medication Orders Acetaminophen (Tylenol) 650 mg PO Q6H PRN PRN Reason: Pain Albuterol/Ipratropium (Duoneb 3.0-0.5 Mg/3 Ml) 3 ml NEB Q4HRRT PRN PRN Reason: Shortness of Breath Aspirin (Aspirin) 81 mg PO DAILY [facility] Last Admin: 05/21/20 10:59 Dose: 81 mg Documented by: AIDE Ezetimibe (Zetia) 10 mg PO DAILY [facility] Last Admin: 05/21/20 11:00 Dose: 10 mg Documented by: AIDE Enoxaparin Sodium (Lovenox) 40 mg SUBCUT Q24H [facility] Last Admin: 05/21/20 14:05 Dose: 40 mg Documented by: AIDE Furosemide (Lasix) 40 mg IVPUSH Q6H [facility] Last Admin: 05/21/20 17:46 Dose: 40 mg Documented by: AIDE Hydrochlorothiazide (Hydrochlorothiazide) 25 mg PO DAILY [facility] Last Admin: 05/21/20 10:59 Dose: 25 mg Documented by: AIDE Insulin Aspart (Novolog) 0 unit SUBCUT TIDAC [facility]; Protocol Last Admin: 05/21/20 18:01 Dose: 6 units Documented by: Admin: 05/21/20 13:57 Dose: 4 units Documented by: Admin: 05/21/20 11:15 Dose: 4 units Documented by: AIDE Insulin Glargine (Lantus Solostar) 40 units SUBCUT BEDTIME [facility] Last Admin: 05/21/20 20:50 Dose: 40 units Documented by: MASOOD Labetalol HCl (Normodyne) 20 mg IVPUSH Q4H PRN; Protocol PRN Reason: Hypertension Lisinopril (Prinivil) 20 mg PO DAILY [facility] Last Admin: 05/21/20 11:01 Dose: 20 mg Documented by: AIDE Omeprazole (Omeprazole) 20 mg PO DAILY [facility] Last Admin: 05/21/20 11:01 Dose: 20 mg Documented by: AIDE Pravastatin Sodium (Pravachol) 20 mg PO BEDTIME [facility] Last Admin: 05/21/20 20:48 Dose: 20 mg Documented by: Admin: 05/21/20 02:20 Dose: 20 mg Documented by: MO Simvastatin (Zocor) 40 mg PO BEDTIME [facility] Last Admin: 05/21/20 20:48 Dose: 40 mg Documented by: MASOOD
[2020-05-21] MEDS ORDERED: EZETIMIBE PO SCH (09:00)
[2020-05-21] MEDS ORDERED: SIMVASTATIN PO SCH (09:00)
[2020-05-21] MEDS ORDERED: Furosemide 40 MG/4 ML VIAL IVPUSH SCH ×3 (09:00→12:15)
[2020-05-21] MEDS ORDERED: [UNRECOGNIZED DRUG - OTHER] PO SCH (09:00)
[2020-05-21] MEDS: Hydrochlorothiazide 25 MG Tab PO SCH (10:59)
[2020-05-21] MEDS: Aspirin 81 MG Tab.Chew PO SCH (10:59)
[2020-05-21] MEDS: Ezetimibe 10 MG Tab PO SCH (11:00)
[2020-05-21] MEDS: Omeprazole 20 MG Cap.CR PO SCH (11:01)
[2020-05-21] MEDS: Lisinopril 10 MG Tab PO SCH (11:01)
[2020-05-21] MEDS: Insulin Aspart 100 Units/ML 3 ML Pen SUBCUT SCH ×3 (11:15→18:01)
[2020-05-21] MEDS ORDERED: Enoxaparin 40 MG/0.4 ML Syringe SUBCUT SCH (13:45)
[2020-05-21] MEDS: Furosemide 40 MG/4 ML VIAL IVPUSH SCH ×2 (17:46→23:18)
[2020-05-21] MEDS ORDERED: Simvastatin 40 MG Tab PO SCH (21:00)
[2020-05-22] MEDS: Furosemide 40 MG/4 ML VIAL IVPUSH SCH (05:28)
[2020-05-22 06:57] LABS: BLOOD UREA NITROGEN,BUN 30 mg/dL (7.0-18.0); CARBON DIOXIDE,CO2 30.9 mmol/L (21.0-32.0); CHLORIDE,CL 98 mmol/L (98-107); GLUCOSE RANDOM 216 mg/dL (74-106); SODIUM,NA 136 mmol/L (136-148)
[2020-05-22] MEDS: Insulin Aspart 100 Units/ML 3 ML Pen SUBCUT SCH ×2 (08:10→12:32)
[2020-05-22] MEDS: Lisinopril 10 MG Tab PO SCH (09:30)
[2020-05-22] MEDS: Ezetimibe 10 MG Tab PO SCH (09:30)
[2020-05-22] MEDS: Aspirin 81 MG Tab.Chew PO SCH (09:30)
[2020-05-22] MEDS: Hydrochlorothiazide 25 MG Tab PO SCH (09:53)
[2020-05-22] MEDS: Omeprazole 20 MG Cap.CR PO SCH (09:53)
--- NOTE | 2020-05-22 12:08 | PCM.DCSUM1 ---
<Arslan Lynch - Last Filed: 05/22/20 17:25> Discharge Summary - Hospital Course Free Text/Narrative:: 64-year-old male admitted for chest pain and new-onset CHF. He has a PMH of heart valve replacement, HTN, HLD, DM type 2 and SONJA. On admission, CXR showed cardiomegaly, CT angio was negative for PE but showed b/l ground glass opacities and COVID19 test negative. ECHO ordered and is currently pending. Patient had no reported events on telemetry. Troponins were trended and were negative. Patient had no reoccurrence of chest pain. For CHF, patient diuresed with IV lasix and placed on fluid restriction and low salt diet. On day of discharge, patient noted significant improvement in his leg edema and shortness of breath. He was discharged in stable condition and started on lasix 20 mg qd with instruction to double dose if he notices increased leg swelling. Patient is already on aspirin and statin. Cardiology referral appointment was made for him. He was also advised to follow-up with PCP and appointment made for this. Patient will need to be started on a beta-linh as an outpatient by his PCP and this was explained to patient. All questions addressed. - Discharge Data Discharge Date: 05/22/20 Discharge Disposition: Home, Self-Care 01 Condition: Stable - Referral to Home Health Primary Care Physician: Nanette Bhandari MD - Patient Summary/Data Consults: Consultations 05/21/20 10:20 Consult to Information Assistant [Consult to Diabetic Nurse Specialist] [CONS] Routine - Patient Instructions Diet: Heart Healthy Diet, Low Sodium, Fluid Restriction Diet, Other: <2 g of salt per day Fluid Restriction: 2000 mL Activity: As Tolerated Notify Provider of: Fever, Increased Pain, Swelling and Redness, Drainage, Nausea and/or Vomiting - Discharge Plan *PRESCRIPTION DRUG MONITORING PROGRAM REVIEWED*: Not Applicable *COPY OF PRESCRIPTION DRUG MONITORING REPORT IN PATIENT RAFAEL: Not Applicable Prescriptions/Med Rec: Aspirin 81 mg PO DAILY 30 Days #30 tab.chew Furosemide 20 mg PO DAILY 30 Days #30 tablet Insulin Aspart [NovoLOG] See Protocol SQ TIDAC 30 Days #4 pen Home Medications: Home Meds Ezetimibe/Simvastatin [Vytorin 10-40 mg Tablet] 1 each PO DAILY 09/30/15 [History] Lisinopril [Prinivil] 20 mg PO DAILY 09/30/15 [History] Omeprazole [Prilosec] 20 mg PO DAILY 09/30/15 [History] hydroCHLOROthiazide [Hydrochlorothiazide] 25 mg PO DAILY 09/30/15 [History] Aspirin 81 mg PO DAILY 30 Days #30 tab.chew 05/21/20 [Rx] Furosemide 20 mg PO DAILY 30 Days #30 tablet 05/21/20 [Rx] Insulin Aspart [NovoLOG] See Protocol SQ TIDAC 30 Days #4 pen 05/22/20 [Rx] Insulin Glarg,Human.Rec.Analog [Lantus] 50 unit SUBCUT BEDTIME #0 05/22/20 [Rx] Oxygen Therapy Mode: Room Air Patient Handouts: Aspirin, ASA chewable tablets, Furosemide tablets, Insulin Aspart injection, Nonspecific Chest Pain, Adult, [id number] Referrals: Arden Ramos MD [Physician] - Nanette Bhandari MD [Primary Care Provider] - 06/03/20 3:15 pm - Discharge Summary/Plan Comment DC Time >30 min.: No - Patient Data Vitals - Most Recent: Last Vital Signs Temp 36.5 C 05/22/20 08:00 Pulse 83 05/22/20 08:00 Resp 16 05/22/20 08:00 BP 146/79 H 05/22/20 09:30 Pulse Ox 90 L 05/22/20 08:00 Weight - Most Recent: 104.825 kg I&O - Last 24 hours: Intake & Output 05/21/20 05/22/20 05/22/20 22:59 06:59 14:59 Intake Total 2000 600 Output Total 4000 1250 Balance -1999 -650 Lab Results - Last 24 hrs: Laboratory Results - last 24 hr 05/21/20 05/21/20 05/22/20 Range/Units 16:45 20:47 05:35 WBC 9.77 (4.0-11.0) K/uL RBC 5.10 (4.50-5.90) M/uL Hgb 15.4 (13.0-17.0) g/dL Hct 46.3 (38.0-50.0) % MCV 90.8 (80.0-98.0) fL MCH 30.2 (27.0-32.0) pg MCHC 33.3 (31.0-37.0) g/dL RDW Std Deviation 44.9 (28.0-62.0) fl RDW Coeff of Saritha 14 (11.0-15.0) % Plt Count 231 (150-400) K/uL MPV 10.60 (7.40-12.00) fL Neut % (Auto) 58.9 (48.0-80.0) % Lymph % (Auto) 26.9 (16.0-40.0) % Dickenson % (Auto) 10.0 (0.0-15.0) % Eos % (Auto) 4.0 (0.0-7.0) % Baso % (Auto) 0.2 (0.0-1.5) % Neut # (Auto) 5.8 H (1.4-5.7) K/uL Lymph # (Auto) 2.6 H (0.6-2.4) K/uL Dickenson # (Auto) 1.0 H (0.0-0.8) K/uL Eos # (Auto) 0.4 (0.0-0.7) K/uL Baso # (Auto) 0.0 (0.0-0.1) K/uL Nucleated RBC % 0.0 /100WBC Nucleated RBCs # 0 K/uL Sodium (136-148) mmol/L Potassium (3.5-5.1) mmol/L Chloride (98-107) mmol/L Carbon Dioxide (21.0-32.0) mmol/L BUN (7.0-18.0) mg/dL Creatinine (0.8-1.3) mg/dL Est Cr Clr Drug Dosing mL/min Estimated GFR (MDRD) ml/min Glucose (74-106) mg/dL POC Glucose 272 H 273 H (60-110) mg/dL Calcium (8.5-10.1) mg/dL Total Bilirubin (0.2-1.0) mg/dL AST (15-37) IU/L ALT (14-63) IU/L Alkaline Phosphatase (46-116) U/L Total Protein (6.4-8.2) g/dL Albumin (3.4-5.0) g/dL Globulin (2.6-4.0) g/dL Albumin/Globulin Ratio (0.9-1.6) 05/22/20 05/22/20 Range/Units 05:35 06:16 WBC (4.0-11.0) K/uL RBC (4.50-5.90) M/uL Hgb (13.0-17.0) g/dL Hct (38.0-50.0) % MCV (80.0-98.0) fL MCH (27.0-32.0) pg MCHC (31.0-37.0) g/dL RDW Std Deviation (28.0-62.0) fl RDW Coeff of Saritha (11.0-15.0) % Plt Count (150-400) K/uL MPV (7.40-12.00) fL Neut % (Auto) (48.0-80.0) % Lymph % (Auto) (16.0-40.0) % Dickenson % (Auto) (0.0-15.0) % Eos % (Auto) (0.0-7.0) % Baso % (Auto) (0.0-1.5) % Neut # (Auto) (1.4-5.7) K/uL Lymph # (Auto) (0.6-2.4) K/uL Dickenson # (Auto) (0.0-0.8) K/uL Eos # (Auto) (0.0-0.7) K/uL Baso # (Auto) (0.0-0.1) K/uL Nucleated RBC % /100WBC Nucleated RBCs # K/uL Sodium 136 (136-148) mmol/L Potassium 4.0 (3.5-5.1) mmol/L Chloride 98 (98-107) mmol/L Carbon Dioxide 30.9 (21.0-32.0) mmol/L BUN 30 H (7.0-18.0) mg/dL Creatinine 1.1 (0.8-1.3) mg/dL Est Cr Clr Drug Dosing 69.63 mL/min Estimated GFR (MDRD) > 60.0 ml/min Glucose 216 H (74-106) mg/dL POC Glucose 222 H (60-110) mg/dL Calcium 9.1 (8.5-10.1) mg/dL Total Bilirubin 0.5 (0.2-1.0) mg/dL AST 16 (15-37) IU/L ALT 20 (14-63) IU/L Alkaline Phosphatase 67 (46-116) U/L Total Protein 7.8 (6.4-8.2) g/dL Albumin 3.5 (3.4-5.0) g/dL Globulin 4.3 H (2.6-4.0) g/dL Albumin/Globulin Ratio 0.8 L (0.9-1.6) Med Orders - Current: Current Medications Acetaminophen (Tylenol) 650 mg PO Q6H PRN PRN Reason: Pain Albuterol/Ipratropium (Duoneb 3.0-0.5 Mg/3 Ml) 3 ml NEB Q4HRRT PRN PRN Reason: Shortness of Breath Aspirin (Aspirin) 81 mg PO DAILY [facility] Last Admin: 05/22/20 09:30 Dose: 81 mg Documented by: Ezetimibe (Zetia) 10 mg PO DAILY [facility] Last Admin: 05/22/20 09:30 Dose: 10 mg Documented by: Enoxaparin Sodium (Lovenox) 40 mg SUBCUT Q24H [facility] Last Admin: 05/21/20 14:05 Dose: 40 mg Documented by: Furosemide (Lasix) 40 mg IVPUSH BIDDIURETIC [facility] Hydrochlorothiazide (Hydrochlorothiazide) 25 mg PO DAILY [facility] Last Admin: 05/22/20 09:53 Dose: 25 mg Documented by: Insulin Aspart (Novolog) 0 unit SUBCUT TIDAC [facility]; Protocol Last Admin: 05/22/20 08:10 Dose: 4 units Documented by: Insulin Glargine (Lantus Solostar) 40 units SUBCUT BEDTIME [facility] Last Admin: 05/21/20 20:50 Dose: 40 units Documented by: Labetalol HCl (Normodyne) 20 mg IVPUSH Q4H PRN; Protocol PRN Reason: Hypertension Lisinopril (Prinivil) 20 mg PO DAILY [facility] Last Admin: 05/22/20 09:30 Dose: 20 mg Documented by: Omeprazole (Omeprazole) 20 mg PO DAILY [facility] Last Admin: 05/22/20 09:53 Dose: 20 mg Documented by: Pravastatin Sodium (Pravachol) 20 mg PO BEDTIME [facility] Last Admin: 05/21/20 20:48 Dose: 20 mg Documented by: Simvastatin (Zocor) 40 mg PO BEDTIME [facility] Last Admin: 05/21/20 20:48 Dose: 40 mg Documented by: Discontinued Medications Aspirin (Aspirin) 324 mg PO ONETIME ONE Stop: 05/20/20 21:08 Last Admin: 05/20/20 21:38 Dose: 324 mg Documented by: Furosemide (Lasix) 40 mg IVPUSH NOW ONE Stop: 05/20/20 21:12 Last Admin: 05/20/20 21:38 Dose: 40 mg Documented by: Furosemide (Lasix) 40 mg IVPUSH BID [facility] Last Admin: 05/21/20 19:59 Dose: Not Given Documented by: Furosemide (Lasix) 40 mg IVPUSH Q8H [facility] Last Admin: 05/21/20 11:04 Dose: 40 mg Documented by: Furosemide (Lasix) 40 mg IVPUSH Q6H [facility] Last Admin: 05/21/20 19:59 Dose: Not Given Documented by: Furosemide (Lasix) 40 mg IVPUSH Q6H [facility] Last Admin: 05/22/20 05:28 Dose: 40 mg Documented by: Magnesium Sulfate 2 gm/ Premix 50 mls @ 50 mls/hr IV ONETIME ONE Stop: 05/21/20 02:46 Last Admin: 05/21/20 02:21 Dose: 50 mls/hr Documented by: Insulin Glargine (Lantus Solostar) 20 units SUBCUT BEDTIME [facility] Last Admin: 05/21/20 03:39 Dose: 20 units Documented by: Iopamidol (Isovue-370 (76%)) 75 ml IVPUSH ONETIME STA Stop: 05/20/20 23:09 Last Admin: 05/20/20 23:10 Dose: 75 ml Documented by: Labetalol HCl (Normodyne) 20 mg IVPUSH ONETIME ONE; Protocol Stop: 05/20/20 21:18 Last Admin: 05/20/20 21:35 Dose: 20 mg Documented by: Labetalol HCl (Normodyne) 20 mg IVPUSH ONETIME ONE; Protocol Stop: 05/20/20 23:25 Last Admin: 05/20/20 23:37 Dose: 20 mg Documented by: Non-Formulary Medication (Ezetimibe/Simvastatin [Vytorin 10-40 Mg Tablet]) 1 each PO DAILY [facility] <Susan Garrido Last Filed: 05/24/20 19:10> Discharge Summary - Hospital Course Free Text/Narrative:: I have seen and evaluated the patient and agree with the residents note unless specified in my note - Referral to Home Health Primary Care Physician: Nanette Bhandari MD - Patient Summary/Data Consults: Consultations 05/21/20 10:20 Consult to Information Assistant [Consult to Diabetic Nurse Specialist] [CONS] Routine - Patient Data Vitals - Most Recent: Last Vital Signs Temp 36.5 C 05/22/20 12:00 Pulse 78 05/22/20 12:00 Resp 16 05/22/20 12:00 BP 126/81 05/22/20 12:00 Pulse Ox 94 L 05/22/20 12:00 Med Orders - Current: Current Medications Discontinued Medications Acetaminophen (Tylenol) 650 mg PO Q6H PRN PRN Reason: Pain Albuterol/Ipratropium (Duoneb 3.0-0.5 Mg/3 Ml) 3 ml NEB Q4HRRT PRN PRN Reason: Shortness of Breath Aspirin (Aspirin) 324 mg PO ONETIME ONE Stop: 05/20/20 21:08 Last Admin: 05/20/20 21:38 Dose: 324 mg Documented by: Aspirin (Aspirin) 81 mg PO DAILY [facility] Last Admin: 05/22/20 09:30 Dose: 81 mg Documented by: Ezetimibe (Zetia) 10 mg PO DAILY [facility] Last Admin: 05/22/20 09:30 Dose: 10 mg Documented by: Enoxaparin Sodium (Lovenox) 40 mg SUBCUT Q24H [facility] Last Admin: 05/21/20 14:05 Dose: 40 mg Documented by: Furosemide (Lasix) 40 mg IVPUSH NOW ONE Stop: 05/20/20 21:12 Last Admin: 05/20/20 21:38 Dose: 40 mg Documented by: Furosemide (Lasix) 40 mg IVPUSH BID [facility] Last Admin: 05/21/20 19:59 Dose: Not Given Documented by: Furosemide (Lasix) 40 mg IVPUSH Q8H [facility] Last Admin: 05/21/20 11:04 Dose: 40 mg Documented by: Furosemide (Lasix) 40 mg IVPUSH Q6H [facility] Last Admin: 05/21/20 19:59 Dose: Not Given Documented by: Furosemide (Lasix) 40 mg IVPUSH Q6H [facility] Last Admin: 05/22/20 05:28 Dose: 40 mg Documented by: Furosemide (Lasix) 40 mg IVPUSH BIDDIURETIC [facility] Hydrochlorothiazide (Hydrochlorothiazide) 25 mg PO DAILY [facility] Last Admin: 05/22/20 09:53 Dose: 25 mg Documented by: Magnesium Sulfate 2 gm/ Premix 50 mls @ 50 mls/hr IV ONETIME ONE Stop: 05/21/20 02:46 Last Admin: 05/21/20 02:21 Dose: 50 mls/hr Documented by: Insulin Aspart (Novolog) 0 unit SUBCUT TIDAC [facility]; Protocol Last Admin: 05/22/20 12:32 Dose: 2 units Documented by: Insulin Glargine (Lantus Solostar) 20 units SUBCUT BEDTIME [facility] Last Admin: 05/21/20 03:39 Dose: 20 units Documented by: Insulin Glargine (Lantus Solostar) 40 units SUBCUT BEDTIME [facility] Last Admin: 05/21/20 20:50 Dose: 40 units Documented by: Iopamidol (Isovue-370 (76%)) 75 ml IVPUSH ONETIME STA Stop: 05/20/20 23:09 Last Admin: 05/20/20 23:10 Dose: 75 ml Documented by: Labetalol HCl (Normodyne) 20 mg IVPUSH ONETIME ONE; Protocol Stop: 05/20/20 21:18 Last Admin: 05/20/20 21:35 Dose: 20 mg Documented by: Labetalol HCl (Normodyne) 20 mg IVPUSH ONETIME ONE; Protocol Stop: 05/20/20 23:25 Last Admin: 05/20/20 23:37 Dose: 20 mg Documented by: Labetalol HCl (Normodyne) 20 mg IVPUSH Q4H PRN; Protocol PRN Reason: Hypertension Lisinopril (Prinivil) 20 mg PO DAILY [facility] Last Admin: 05/22/20 09:30 Dose: 20 mg Documented by: Non-Formulary Medication (Ezetimibe/Simvastatin [Vytorin 10-40 Mg Tablet]) 1 each PO DAILY [facility] Omeprazole (Omeprazole) 20 mg PO DAILY [facility] Last Admin: 05/22/20 09:53 Dose: 20 mg Documented by: Pravastatin Sodium (Pravachol) 20 mg PO BEDTIME [facility] Last Admin: 05/21/20 20:48 Dose: 20 mg Documented by: Simvastatin (Zocor) 40 mg PO BEDTIME [facility] Last Admin: 05/21/20 20:48 Dose: 40 mg Documented by:
[2020-05-22 12:12] VITALS: BP 126/81; PULSE 78
[2020-05-22] MEDS ORDERED: Furosemide 40 MG/4 ML VIAL IVPUSH SCH (14:00)
--- NOTE | 2020-05-25 12:39 | ECHO ---
EXAM DATE: 05/21/20 PATIENT'S AGE: 64 The ECHO report has been scanned into [employer] and can be seen in this patient's EMR (Electronic Medical Record) under the REPORTS section. The report has also been scanned into PACS. RAQUEL
== END 2020-05-22 12:59 | disposition home or self-care (01) ==
LOC: MW.ED 20:33 → MW.MS 05-21 00:19
PROVIDERS: ADMIT Student in an Organized Health Care Education/Training Program; ATTEND Student in an Organized Health Care Education/Training Program
DX: R07.89 Other chest pain (principal); E78.5 Hyperlipidemia, unspecified; E11.9 Type 2 diabetes mellitus without complications; G47.33 Obstructive sleep apnea (adult) (pediatric); I11.0 Hypertensive heart disease with heart failure; I50.9 Heart failure, unspecified; Z20.828 Contact with and (suspected) exposure to other viral communicable diseases; Z98.890 Other specified postprocedural states; Z79.899 Other long term (current) drug therapy; Z95.2 Presence of prosthetic heart valve; Z79.4 Long term (current) use of insulin; Z79.82 Long term (current) use of aspirin
CPT/HCPCS: 36415; 71045; 71275; 80048; 80053; 80061; 81001; 82962; 83036; 83735; 83880; 84100; 84443; 84484; 85025; 85379; 87635; 93306; 96372; 96374; 96375; 96376; 99285; A9270; G0378; J1650; J1815; J1940; J3475; J3490; Q9967; U0002